=== PATIENT | female | born 1950 | race Caucasian/White ===

== ENCOUNTER → 2017-06-23 | Outpatient (CLI) | payer OTHER ==
[~2017-06-23] VITALS: Ht 152.4 cm; Wt 83.9 kg
[~2017-06-23] MED LIST: CENTRUM SILVER1 TAB PO; CRESTOR10 MG PO; FLONASE16 GM NS; FOSAMAX; MEDROL4 MG PO; MICARDIS80 MG PO; PROVENTIL3 ML/2.5 M IH; SYNTHROID150 MCG PO; TUSSIONEX PENNKI5 ML PO; VIT C
== END | disposition home or self-care (01) ==
LOC: OFIC 805 06-09 07:30
DX: R05 Cough (principal); J31.0 Chronic rhinitis; E66.01 Morbid (severe) obesity due to excess calories; Z68.30 Body mass index [BMI] 30.0-30.9, adult; J34.2 Deviated nasal septum; G47.33 Obstructive sleep apnea (adult) (pediatric)

== ENCOUNTER 2018-09-26 07:25 | Outpatient (CLI) | payer OTHER | END 2018-09-26 08:27 | disposition home or self-care (01) | LOC: LAB 07:25 | DX: R10.9 Unspecified abdominal pain (principal) ==

== ENCOUNTER 2018-09-29 07:50 | Outpatient (CLI) | payer OTHER | END 2018-09-29 10:00 | disposition home or self-care (01) | LOC: TOM 07:50 | DX: R10.9 Unspecified abdominal pain (principal) ==

== ENCOUNTER 2018-10-04 08:06 | Outpatient (CLI) | payer OTHER | END 2018-10-04 08:14 | disposition home or self-care (01) | LOC: SONOGRAMA 08:06 | DX: R10.84 Generalized abdominal pain (principal) ==

== ENCOUNTER 2020-03-27 10:57 | Outpatient (CLI) | payer OTHER | END 2020-03-27 11:08 | disposition home or self-care (01) | LOC: NUCLEAR 10:57 | PROVIDERS: ATTEND Internal Medicine Cardiovascular Disease | DX: I10 Essential (primary) hypertension (principal) ==